=== PATIENT | female | born 1980 | race Caucasian/White ===

== ENCOUNTER 2024-08-11 16:16 | Emergency (ER) | payer OTHER, SELFPAY ==
[2024-08-11 16:18] VITALS: BP 186/116
[2024-08-11 16:52] LABS: % Basophils 0.4 % (0-2); % Immature Granulocytes 0.3 % (0-0.5); % Lymphocytes 37.3 % (20.5-51.1); Absolute Eosinophils 0.2 10^3/uL (0-0.7); Absolute Monocytes 0.7 10^3/uL (0.1-0.6); Hemoglobin 13.1 g/dL (12.0-16.0); Mean Corp Hgb Conc. 34.5 g/dL (33.0-37.0); Mean Corpuscular Volume 87.2 fL (81.0-99.0); Mean Platelet Volume 9.1 fL (7.4-10.4); Nucleated Red Blood Cells % 0 %; Platelet Count 292 10^3/uL (130-400); Red Blood Cell Count 4.36 10^6/uL (4.20-5.40); Red Cell Dist. Width 13.1 % (11.5-14.5)
[2024-08-11 17:20] LABS: ALT (SGPT) 27 U/L (0-35); AST (SGOT) 24 U/L (14-36); Albumin 4.8 g/dl (3.5-5.0); Alkaline Phosphatase 55 U/L (38-126); Blood Urea Nitrogen 13 mg/dl (7-17); Calcium 9.7 mg/dl (8.4-10.2); Carbon Dioxide 24 mmol/L (22-30); Chloride 104 mmol/L (98-107); Glucose 93 mg/dl (70-99); Potassium 4.2 mmol/L (3.5-5.1); Sodium 140 mmol/L (135-145); Total Bilirubin 0.4 mg/dl (0.2-1.3); Total Protein 7.8 g/dl (6.3-8.2); eGFR > 60.00
[2024-08-11 17:22] LABS: Troponin I < 0.012 ng/ml
[2024-08-11 18:32] VITALS: BP 120/79
--- NOTE | 2024-08-11 19:27 | ED.GENMED ---
History of Present Illness
General
Chief Complaint: Musculo-Skeletal Complaint
Source: patient
Exam Limitations: none
Time Seen by Provider: 08/11/24 19:05
History of Present Illness
History of Present Illness:
This is a 44-year-old female who presents with complaints of pain down the right arm to the hand. She states that when it comes on it was severe and had numbness as well. She states now it is improved but she is afraid to lift her arm up because
she is afraid it will come back. She states she has been dealing this for about 2 weeks and saw her doctor as well as her chiropractor. She has an MRI scheduled for August 31. The patient denies motor weakness. She denies chest pain. No back
pain. She states it definitely feels like it is worse in certain movements. Today the pain came on after she was sitting at a computer and stood up. She states the pain was severe into her hand. She states it also radiates from her neck and sort
of went up her neck. No fevers. No obvious injury over the last few weeks.
Past History
Past History
ED Past Medical History: HTN
Social History
Tobacco: Non-smoker
Phy Exam
Physical Exam
Physical Exam:
CONSTITUTIONAL Vital signs reviewed, Patient alert and oriented to person, place and time. Well-appearing
HEAD atraumatic, normocephalic.
EYES eyelids normal to inspection, Extraocular muscles intact, Conjunctiva normal, Sclera normal.
NECK normal range of motion, Trachea midline, no jugular venous distention. No midline tenderness.
RESP no respiratory distress
BACK No obvious deformities
UPPER EXTREMITY Gross Range of motion normal, gross motor strength normal. Equal bilateral radial pulses. Normal distal perfusion bilaterally. No pronator drift. Negative Eb's. No noted rash of any kind.
LOWER EXTREMITY Gross range of motion normal, Gross motor strength normal
NEURO Speech normal, No focal motor deficits include, Connie coma scale 15, Memory normal, Cranial Nerves intact to screening exam.
SKIN Skin warm, dry, and normal in color.
PSYCHIATRIC Patient oriented to person place and time, Normal affect.
Course
Orders/Labs/Results
Orders:
Orders
08/11/24 16:27
Electrocardiogram (*1) Urgent
Reason for Study: Other
Other Reason for Exam: arm pain, neck pain, cold feeling of arm
CR Chest - 2 Views Urgent
Comment:
Reason For Exam: arm pain, neck pain, cold feeling of arm
08/11/24 16:28
EKG- Treatment ONCE
08/11/24 16:41
Complete Blood Count/With Diff Urgent
Comprehensive Metabolic Panel Urgent
Troponin I Urgent
08/11/24 19:27
Prednisone [Deltasone] 50 mg PO NOW STA
Abnormal Lab Results
08/11/24
16:41
Absolute Monos (auto) 0.7 H 10^3/uL
(0.1-0.6)
08/11/24 16:41
08/11/24 16:41
Vital Signs
Initial and Last Documented VS:
Initial Vital Signs
Temp Pulse Resp BP Pulse Ox
97.8 F 98 18 186/116 100
08/11/24 16:18 08/11/24 16:18 08/11/24 16:18 08/11/24 16:18 08/11/24 16:18
Last Documented Vital Signs
Temp Pulse Resp BP Pulse Ox
97.8 F 81 16 120/79 97
08/11/24 16:18 08/11/24 18:32 08/11/24 18:32 08/11/24 18:32 08/11/24 18:32
MDM/Problems Addressed
Differential Diagnosis Includes:
Dissection, ACS, thoracic outlet syndrome, herniated cervical disc, cervical radiculopathy
MDM/Problems Addressed:
Cervical radiculopathy
*EKG
Interpreted by ED Provider?: Yes
Interpretation: normal
Rate: normal
Rhythm: sinus
QRS Pattern: normal QRS
Ischemia: no ischemia
*Critical Care Note
Total Time (30-74mins, 75-104mins- exclusive of procedures): Not Applicable
Data Reviewed
Source: patient
Prescriptions/Medications Considered But Not Given:
Consider pain medications but the severity of the pain is typically brief she states only 5 to 10 seconds.
Further Testing Considered But Not Given:
Considered imaging but no trauma.
Patient Management
Escalation/DeEscalation of care consider admission/obs:
Patient has an MRI as an outpatient already scheduled. Appears well and negative signs for return. Also does not have any clinical evidence of dissection as her pulses are equal bilaterally and her mediastinum is narrow. Question thoracic outlet
syndrome versus cervical etiology. Symptomatology supports cervical radiculopathy
ED Attending Note
-
Portions of this chart may have been created with voice recognition software.� Occasional wrong word or��sound alike� substitutions may have occurred due to the inherent limitations of voice recognition software.
Discharge Plan
Departure
Patient Disposition: Home (Routine Discharge)
Date of Disposition: 08/11/24
Time of Disposition: 19:32
Patient with high blood pressure during this ER visit?: No
Discharge Problem:
Cervical radiculopathy
Instructions: Radiculopathy (DC)
Prescriptions:
New
prednisone 10 mg Tablet
See Rx Instructions .ROUTE .COMPLEX Qty: 45 0RF
Rx Instructions:
Take By Mouth:
50 mg daily x3 days, 40 mg daily x3 days,
30 mg daily x3 days, 20 mg daily x3 days,
10 mg daily x3 days
No Action
Tablet
1 tab PO DAILY
acetaminophen 325 MG tablet
650 mg PO Q4HPRN PRN (Reason: mild pain) 0RF
sennosides-docusate sodium 1 TABLET tablet
1 tab PO DAILYPRN PRN (Reason: constipation) 0RF
ibuprofen 600 MG tablet
600 mg PO Q4HPRN PRN (Reason: moderate pain/cramps) 0RF
Referrals:
UNKNOWN - PT DOES,NOT KNOW [Family Provider] -
Activity Restrictions/Additional Instructions:
Please follow with your doctor as planned and follow-up with your MRI. Return immediately for motor weakness, chest pain, shortness of breath, constant and persistent pain, discoloration of the arm, or any other concerns.
Interventions
Interventions:
*Risk Screen - Suicide Last Done: 08/11/24 16:21
*General Assessment Last Done: 08/11/24 17:18
*Neglect/Abuse Screening Last Done: 08/11/24 16:21
*ED COVID-19 Vaccine History Last Done: 08/11/24 16:20
ED-Musculoskeletal Assessment Last Done: 08/11/24 17:18
Discharge Date and Time
Print Language: [email or web address]
[2024-08-11] MEDS: DELTASONE 50 MG PO (19:40)
== END 2024-08-11 20:05 | disposition home or self-care (01) ==
LOC: EMR 16:16
PROVIDERS: Physician Assistant; EMERGENCY PHYSICIAN Emergency Medicine
DX: M54.12 Radiculopathy, cervical region (principal); I10 Essential (primary) hypertension
CPT/HCPCS: 99283; 71046; 80053; 84484; 85025; 93005